=== PATIENT | male | born 1955 | race Caucasian/White ===

== ENCOUNTER 2017-05-26 09:46 | Inpatient (IN) | payer OTHER ==
[~2017-05-26] VITALS: Ht 172.7 cm; Wt 98.0 kg
[~2017-05-26 09:46] MED LIST: ASPIRIN EC325 MG PO; ASPIRIN81 M2 PO; CLOPIDOGREL75 MG PO; COUMADIN10 MG PO; COUMADIN7.5 MG PO; ERGOCALCIF50000 UNIT PO; METOPROLOL SUCC25 MG PO; MOTRIN IB200 MG PO; PRAVACHOL40 MG PO; TYLENOL REGULA325 MG PO
[2017-05-26 11:06] LABS: BASOPHIL COUNT 0.1 K/uL (0-0.1); EOSINOPHIL (%) 1.6 % (0-5); EOSINOPHIL COUNT 0.1 K/uL (0-0.3); HEMATOCRIT 53.3 % (38.0-50.0); IMMATURE GRANULOCYTE (%) 0.3 % (0.0-0.7); INSTRUMENT ABS NEUTROPHIL CT 4.5 K/uL; LYMPHOCYTE COUNT 1.5 K/uL (1.0-2.8); MCH 27.9 PG (29.0-34.0); MCHC 32.6 G/DL (30.0-36.0); MCV 85.6 FL (86-99); MEAN PLAT.VOLUME 11.2 uM^3 (9.0-12.4); MONOCYTE COUNT 0.6 K/uL (0-0.8); NEUTROPHIL (%) 66.1 % (45-76); NEUTROPHIL COUNT 4.5 K/uL (1.8-6.4); PLATELET COUNT 296 K/uL (156-360); RBC DIS.WIDTH-CV 14.8 % (11.8-14.6); RBC DIS.WIDTH-SD 44.6 % (39-53); RED BLOOD COUNT 6.23 M/uL (4.00-5.50); WHITE BLOOD COUNT 6.9 K/uL (4.1-10.2)
[2017-05-26 11:29] LABS: FASTING STATUS NONFASTING
[2017-05-26 11:42] LABS: INTER. NORMALIZED RATIO 2.6; PROTHROMBIN TIME 27.5 (9.2-11.2); PTT 45.3 (25-32)
[2017-05-26 12:03] LABS: ANION GAP 3 MEQ/L (2-14); CHLORIDE 102 MEQ/L (99-109); GFR ESTIMATE (CALCULATED) 55 mL/min/; GLUCOSE 92 mg/dL (70-99); HDL CHOLESTEROL 30 MG/DL (Desirable>=40); LDL CHOLESTEROL 115 mg/dL (Desirable<100); NON-HDL CHOLESTEROL 153 mg/dL (Desirable<160); POTASSIUM 5.1 MEQ/L (3.7-5.4); SAMPLE HEMOLYSIS CHECK 0; SAMPLE ICTERIC CHECK 0; SAMPLE LIPEMIA CHECK 0; SODIUM 134 MEQ/L (136-147); TOTAL CHOLESTEROL 183 mg/dL (Desirable<200); TRIGLYCERIDES 190 MG/DL (Normal: <150); UREA NITROGEN (BUN) 17 mg/dL (9-23)
[2017-05-26 13:34] LABS: TROP-I INTERPRETATION NEGATIVE; TROPONIN-I < 0.01 ng/mL (0.0-0.30)
[2017-05-26] MEDS ORDERED: COUMADIN5 MG PO (14:33)
[2017-05-26] MEDS ORDERED: TOPROL XL25 MG PO (14:34)
[2017-05-26] MEDS ORDERED: PRAVACHOL40 MG PO (14:34)
[2017-05-26] MEDS ORDERED: PLAVIX75 MG PO (14:35)
[2017-05-26 15:37] VITALS: BP 169/93
[2017-05-26 19:49] VITALS: BP 182/84
[2017-05-26 23:29] VITALS: BP 169/79
[2017-05-27 04:08] VITALS: BP 156/84
[2017-05-27 06:07] LABS: ALKALINE PHOSPHATASE 56 IU/L (3-129); ANION GAP 5 MEQ/L (2-14); CHLORIDE 103 MEQ/L (99-109); GFR ESTIMATE (CALCULATED) 50 mL/min/; GLUCOSE 99 mg/dL (70-99); HDL CHOLESTEROL 25 MG/DL (Desirable>=40); LDL CHOLESTEROL 104 mg/dL (Desirable<100); NON-HDL CHOLESTEROL 156 mg/dL (Desirable<160); POTASSIUM 4.8 MEQ/L (3.7-5.4); SAMPLE HEMOLYSIS CHECK 0; SAMPLE ICTERIC CHECK 0; SAMPLE LIPEMIA CHECK 0; SODIUM 135 MEQ/L (136-147); TOTAL BILIRUBIN 0.5 MG/DL (0.0-1.0); TOTAL CHOLESTEROL 181 mg/dL (Desirable<200); TRIGLYCERIDES 261 MG/DL (Normal: <150); UREA NITROGEN (BUN) 17 mg/dL (9-23)
[2017-05-27 06:10] LABS: INTER. NORMALIZED RATIO 2.2; PROTHROMBIN TIME 22.5 (9.2-11.2); PTT 40.8 (25-32)
[2017-05-27 08:01] LABS: Estimated Average Glucose 120 mg/dL (70-123); HEMOGLOBIN A1c (GLYCOHEMOGLOB) 5.8 % HGB (Below 5.7)
[2017-05-27 08:05] VITALS: BP 131/69
[2017-05-27 12:14] VITALS: BP 136/71
[2017-05-28 00:07] VITALS: BP 173/74
[2017-05-28 03:53] VITALS: BP 129/64
[2017-05-28 07:10] LABS: INTER. NORMALIZED RATIO 2.3; PROTHROMBIN TIME 24.3 (9.2-11.2); PTT 39.4 (25-32)
[2017-05-28 07:59] VITALS: BP 121/63
[2017-05-28 11:34] VITALS: BP 135/65
[2017-05-28] MEDS ORDERED: LISINOPRIL5 MG PO (11:57)
== END 2017-05-28 13:00 | disposition home or self-care (01) | DRG 66 ==
LOC: EME 09:46 → 5SOUTH 14:07 → EDOF 14:07 → 5SOUTH 15:11
PROVIDERS: Emergency Medicine; Internal Medicine
DX: I63.9 Cerebral infarction, unspecified (principal); I65.23 Occlusion and stenosis of bilateral carotid arteries; R20.0 Anesthesia of skin; I10 Essential (primary) hypertension; E78.5 Hyperlipidemia, unspecified; G31.9 Degenerative disease of nervous system, unspecified; E55.9 Vitamin D deficiency, unspecified; I73.9 Peripheral vascular disease, unspecified; M19.90 Unspecified osteoarthritis, unspecified site; F17.200 Nicotine dependence, unspecified, uncomplicated; Z86.73 Personal history of transient ischemic attack (TIA), and cerebral infarction without residual deficits; Z86.718 Personal history of other venous thrombosis and embolism; Z79.01 Long term (current) use of anticoagulants; Z79.82 Long term (current) use of aspirin; Z82.5 Family history of asthma and other chronic lower respiratory diseases
CPT/HCPCS: 70450; 70498; 70551; 80048; 80048 91; 80053; 80061; 80061 GA; 83036; 84484; 85025; 85610; 85730; 93005; 93880; 99281; 99285; J7030